=== PATIENT | male | born 1990 | race Caucasian/White ===

== ENCOUNTER 2017-01-08 18:20 | Emergency (ER) | payer BC ==
[~2017-01-08] VITALS: Ht 190.5 cm; Wt 106.8 kg
[~2017-01-08 18:20] MED LIST: NO HOME MEDICATIONS; PREDNISONE20 MG PO
[2017-01-08 18:24] VITALS: BP 128/70; TEMP 98
[2017-01-08] MEDS ORDERED: LEXAPRO 10MG10 MG PO (18:26)
[2017-01-08] MEDS ORDERED: ZYRTEC 10MG10 MG PO (18:27)
[2017-01-08] MEDS ORDERED: CEPHALEXIN500 M1 PO (20:12)
[2017-01-08 20:35] VITALS: PULSE 64
== END 2017-01-08 20:37 | disposition home or self-care (01) ==
LOC: COL.ER 18:20
DX: S61.213A Laceration without foreign body of left middle finger without damage to nail, initial encounter (principal); Z23 Encounter for immunization; W26.0XXA Contact with knife, initial encounter; Y92.009 Unspecified place in unspecified non-institutional (private) residence as the place of occurrence of the external cause

== ENCOUNTER 2017-01-20 12:02 | Emergency (ER) | payer BC ==
[~2017-01-20 12:02] MED LIST changes: +CEPHALEXIN500 M1 PO; +LEXAPRO 10MG10 MG PO; +ZYRTEC 10MG10 MG PO
[2017-01-20 12:07] VITALS: BP 143/68; PULSE 54; TEMP 98.8
== END 2017-01-20 12:12 | disposition home or self-care (01) ==
LOC: COL.ER 12:02
DX: S61.213D Laceration without foreign body of left middle finger without damage to nail, subsequent encounter (principal); X58.XXXD Exposure to other specified factors, subsequent encounter

== ENCOUNTER 2020-08-12 08:33 | Emergency (ER) | payer BC ==
[~2020-08-12] VITALS: Ht 190.5 cm; Wt 93.2 kg
[2020-08-12 08:38] VITALS: BP 145/85; TEMP 98
[2020-08-12 09:25] VITALS: PULSE 98
== END 2020-08-12 09:25 | disposition home or self-care (01) ==
LOC: COL.ER 08:33
DX: S61.215A Laceration without foreign body of left ring finger without damage to nail, initial encounter (principal); S61.217A Laceration without foreign body of left little finger without damage to nail, initial encounter; W26.9XXA Contact with unspecified sharp object(s), initial encounter